=== PATIENT | male | born 1995 | race Caucasian/White ===

== ENCOUNTER 2016-10-19 09:35 | Emergency (ER) | payer BC, MEDICAID ==
[~2016-10-19] VITALS: Ht 160 cm; Wt 86.2 kg
[2016-10-19 09:35] VITALS: BP 130/70; PULSE 85; RESP 19; TEMP 97.6; O2SAT 99
[2016-10-19] MEDS ORDERED: LIDOCAINE 1%, 20 ML MDV 20 ML ONE (09:55)
[2016-10-19] MEDS ORDERED: DIPH-TET-PERTUS Vaccine 0.5 ML VIAL (ADACEL) IM ONE (10:00)
[2016-10-19] MEDS ORDERED: BACITRACIN 1 GM OINT TP ONE (10:00)
[2016-10-19] MEDS ORDERED: LIDOCAINE 1% 10 MG/ML, 20 ML MDV IJ ONE (10:00)
[2016-10-19 11:09] LABS: HEMATOCRIT 54.2 % (36-54); HEMOGLOBIN 17.9 g/dL (14.0-18.0); MEAN CORPUSCULAR HEMOGLOBIN 28 pg (27-31); MEAN CORPUSCULAR HGB CONC 33 % (32-36); MEAN CORPUSCULAR VOLUME 85 fL (79.0-98.0); PLATELET COUNT (AUTO) 235 K/uL (130-430); RED BLOOD CELL COUNT(AUTO) 6.41 MIL/uL (4.2-6.2); RED CELL DISTRIBUTION WIDTH 11.5 % (9.0-15.0); WHITE BLOOD COUNT (AUTO) 13.7 K/uL (4.8-10.8)
[2016-10-19 11:20] LABS: CALCIUM 9.5 mg/dL (8.4-11.0); CREATININE 1.11 mg/dL (0.55-1.30); POTASSIUM 4.2 mmol/L (3.5-5.1)
[2016-10-19 11:25] LABS: ALBUMIN 4.2 g/dL (3.4-4.8); TOTAL BILIRUBIN 0.8 mg/dL (0.0-1.0); TOTAL PROTEIN, SERUM 8.2 g/dL (6.4-8.3)
[2016-10-19 11:31] LABS: INR 1.2 (0.80-1.20); PROTHROMBIN TIME 12.6 SECS (9.5-12.5)
[2016-10-19 11:36] LABS: ATYPICAL LYMPHOCYTES % 4 % (0-0); BAND % (MANUAL) 0 % (0-6); BASOPHILS % (MANUAL) 0 % (0-2); EOSINOPHILS % (MANUAL) 2 % (0-7); LYMPHOCYTES % (MANUAL) 23 % (20-46); MONOCYTES % (MANUAL) 6 % (0-11)
[2016-10-19 12:48] VITALS: BP 128/70; PULSE 85; RESP 19; TEMP 97.6; O2SAT 99
== END 2016-10-19 12:48 | disposition home or self-care (01) ==
LOC: SED 09:35
DX: L05.01 Pilonidal cyst with abscess (principal); Z88.8 Allergy status to other drugs, medicaments and biological substances
CPT/HCPCS: 10081; 36415; 80053; 85007; 85027; 85610; 85730; 90715; 99284; J2001

== ENCOUNTER 2018-06-11 09:19 | Emergency (ER) | payer MEDICAID ==
[~2018-06-11] VITALS: Ht 160 cm; Wt 83.9 kg
[2018-06-11 09:24] VITALS: BP_SYST 144
--- NOTE | 2018-06-11 09:31 | NUR ---
Pt placed in bed 3
--- NOTE | 2018-06-11 09:33 | NUR ---
Patient c/c of back pain after exercising yesterday. Patient states he has worked out all week, after not working out for awhile. Patient states he was doing a 'deadlift' type exercise 'for traps' and his back 'went out and back in' continued pain. Patient states he went into the sauna and steam room without continued exercise after event occurred. Patient denies nausea, vomiting, and diarrhea at this time. Patient states he has been medicating with tylenol and motrin with no relief.
--- NOTE | 2018-06-11 10:05 | NUR ---
ER at bedside examining patient.
[2018-06-11] MEDS ORDERED: KETOROLAC TROMETHAMINE 60 MG/2 ML VIAL IM ONE (10:30)
[2018-06-11] MEDS ORDERED: HYDROcodone/ACETAMIN 10-325 MG TAB PO ONE (11:15)
--- NOTE | 2018-06-11 11:17 | NUR ---
Pain medication given, pt tolerated well. Scanner did not work to scan medication
--- NOTE | 2018-06-11 12:06 | NUR ---
Patient given written and verbal discharge instructions and verbalizes understanding. ER MD discussed with patient the results and treatment provided. Patient in stable condition. ID arm band removed. Rx of [place] 5/325, Motrin given. Patient educated on pain management and to follow up with PMD. Pain Scale 4/10. Opportunity for questions provided and answered.
[2018-06-11 12:11] VITALS: BP_SYST 144
== END 2018-06-11 12:06 | disposition home or self-care (01) ==
LOC: SED 09:19
DX: M54.5 Low back pain (principal); R03.0 Elevated blood-pressure reading, without diagnosis of hypertension; F17.200 Nicotine dependence, unspecified, uncomplicated; Z88.8 Allergy status to other drugs, medicaments and biological substances
CPT/HCPCS: 72100; 96372; 99284; J1885

== ENCOUNTER 2021-12-16 09:48 | Inpatient (IN) | payer MEDICAID ==
[~2021-12-16] VITALS: Ht 160 cm; Wt 70.3 kg
[2021-12-16 09:49] VITALS: BP_SYST 150
--- NOTE | 2021-12-16 09:58 | NUR ---
Chest X-Ray being done at bedside.
--- NOTE | 2021-12-16 10:12 | NUR ---
ER at bedside examining patient.
--- NOTE | 2021-12-16 10:32 | NUR ---
Pt. was bib ACLS post 911 call from his parents when he was unresponsive, EMS reported RR was 4 and they gave narcan, on arrival O2 sat 91% on RA pt, awake and alert, O2 was started at 2L/min via NC and remained under 95% O2 was increased to 4L/NC and RT was here for ABG draw, lungs auscultate clear
--- NOTE | 2021-12-16 10:42 | NUR ---
Dr. Joshua aware of O2 sat and RR, POC is to continue to monitor
[2021-12-16] MEDS ORDERED: MAG HYDROX/AL HYDROX/SIMETH 30 ML, DICYCLOMINE HCL 20 MG, LIDOCAINE VISCOUS 2% 15ML (PO... PO ONE ×3 (11:00)
[2021-12-16] MEDS ORDERED: ONDANSETRON HCL 4 MG/2 ML VIAL ONE (11:18)
[2021-12-16 11:37] LABS: BASOPHILS # (AUTO) 0.1 K/uL (0.0-0.2); BASOPHILS % (AUTO) 0.6 % (0.0-2.0); EOSINOPHILS % (AUTO) 0.2 % (0.0-4.0); HEMATOCRIT 44.5 % (36-54); HEMOGLOBIN 15.3 g/dL (14.0-18.0); LYMPHOCYTES # (AUTO) 1.1 K/uL (1.0-5.5); LYMPHOCYTES % (AUTO) 8.3 % (20.5-51.5); MEAN CORPUSCULAR HEMOGLOBIN 29 pg (27-31); MEAN CORPUSCULAR HGB CONC 35 % (32-36); MEAN CORPUSCULAR VOLUME 84 fL (79.0-98.0); MONOCYTES # (AUTO) 0.6 K/uL (0.0-1.0); MONOCYTES % (AUTO) 4.6 % (1.7-9.3); NEUTROPHILS # (AUTO) 11.8 K/uL (1.8-7.7); NEUTROPHILS % (AUTO) 86.3 % (40.0-70.0); PLATELET COUNT (AUTO) 353 K/uL (130-430); RED BLOOD CELL COUNT(AUTO) 5.33 MIL/uL (4.2-6.2); RED CELL DISTRIBUTION WIDTH 12.3 % (9.0-15.0); WHITE BLOOD COUNT (AUTO) 13.7 K/uL (4.8-10.8)
[2021-12-16] MEDS ORDERED: HYDR-3917 PO (11:37)
[2021-12-16] MEDS ORDERED: PERC10 PO (11:37)
[2021-12-16] MEDS ORDERED: ALPR1TAB2 PO (11:37)
--- NOTE | 2021-12-16 11:37 | NUR ---
Medication reconciliation completed with information provided by pt. Any prior medication reconciliation on file was reviewed and corrected.
[2021-12-16 11:47] LABS: BARBITURATE, URINE NEGATIVE (NEG <=200)
[2021-12-16 11:48] LABS: BENZODIAZEPINE, URINE POSITIVE (NEG <=150); CANNABINOID, URINE POSITIVE (NEG <=50); COCAINE, URINE NEGATIVE (NEG <=150); METHAMPHETAMINES SCREEN,URINE NEGATIVE (NEG <=500); OPIATE, URINE NEGATIVE (NEG <=100); PHENCYCLIDINE SCREEN,URINE NEGATIVE (NEG <=25); UR TRICYCLIC ANTIDEPRESSANTS NEGATIVE (NEG <=300); URINE AMPHETAMINE POSITIVE (NEG <=500); URINE METHADONE NEGATIVE (NEG <=200); URINE OXYCODONE SCREEN POSITIVE (NEG <=100); URINE PROPOXYPHENE SCREEN NEGATIVE (NEG <=300)
[2021-12-16 11:54] LABS: ANION GAP 7 (5-15); CALCIUM 9.8 mg/dL (8.4-11.0); CHLORIDE 99 mmol/L (98-107); CREATININE 1.23 mg/dL (0.55-1.30); GLUCOSE 79 mg/dL (70-99); POTASSIUM 3.4 mmol/L (3.5-5.1); SODIUM SERUM 136 mmol/L (136-145); UREA NITROGEN, BLOOD 15 mg/dL (8-21)
[2021-12-16] MEDS ORDERED: IPRATROPIUM/ALBUTEROL SULFATE 3 ML AMPUL.NEB (DUONEB) INH ONE (12:00)
[2021-12-16 12:02] LABS: ALANINE AMINOTRANSFERASE 84 U/L (12-78); ASPARTATE AMINOTRANSFERASE 78 U/L (10-37); TOTAL BILIRUBIN 0.4 mg/dL (0.0-1.0)
[2021-12-16 12:08] LABS: GFR AFRICAN AMERICAN 91 mL/min (>90)
--- NOTE | 2021-12-16 12:35 | NUR ---
Admit orders rec'd from Dr. Wilkins
--- NOTE | 2021-12-16 12:49 | NUR ---
Admit bed requested Patient will be admitted to care of . Admitted to TELEMETRY unit. Diagnosis RESPIRATORY INSUFFICIENCY Inpatient (Yes or No)YES Observation (Yes or No) NO Orientation concerns or request close to nursing station (Yes or No) NO Covid Status NEGATIVE On vent or bipap NO Isolation requirements NO Needs a sitter NO From Home (Yes or if No enter name of facility) HOME Requires Dialysis (Yes or No) NO Med Rec Completed (Yes of No) YES
[2021-12-16] MEDS ORDERED: ZOLPIDEM TARTRATE 5 MG TABLET PO PRN (13:45)
[2021-12-16] MEDS ORDERED: MAGNESIUM SULFATE 50 ML IV PRN (13:45)
[2021-12-16] MEDS ORDERED: ACETAMINOPHEN 325 MG TABLET PO PRN (13:45)
[2021-12-16] MEDS ORDERED: ONDANSETRON HCL 4 MG/2 ML VIAL IVP PRN (13:45)
[2021-12-16] MEDS ORDERED: DOCUSATE SODIUM 100 MG CAPSULE PO PRN (13:45)
[2021-12-16] MEDS ORDERED: POTASSIUM CHLORIDE 20 MEQ TAB.PRT.SR PO PRN (13:45)
[2021-12-16] MEDS ORDERED: ALBUTEROL MDI INHALATION 8 GM INH INH PRN (13:45)
[2021-12-16] MEDS ORDERED: NACL 0.9% 1,000 ML IV SCH (13:45)
[2021-12-16] MEDS ORDERED: NALOXONE HCL 0.4 MG/ML AMP (NARCAN) IVP PRN ×2 (13:45)
[2021-12-16] MEDS ORDERED: MUPIROCIN 2% TOPICAL OINTMENT 22 GM NS PRN (13:45)
--- NOTE | 2021-12-16 13:50 | NUR ---
Patient will be admitted to care of . Admitted to TELEMETRY unit. Will go to room 122B. Belongings list completed. Complete and up to date summary report printed. SBAR report to be given at bedside with opportunity for questions.
--- NOTE | 2021-12-16 14:10 | NUR ---
CONSULTATION PAGED REASON FOR CONSULTATION:LOW O2 SAT ON RA WAS CONSULT CALLED?Y PERSON WHO WAS NOTIFIED:NINFA CONSULTING PHYSICIAN:ANGELICA FLOR SERVICING REP SPECIALTY:PULMONARY SERVICING REP PHONE NUMBER: [phone] REQUESTING PHYSICIAN:[facility]
[2021-12-16] MEDS ORDERED: ALBUTEROL SULFATE 0.083% 2.5 MG/3 ML VIAL.NEB INH PRN (14:15)
[2021-12-16 14:20] VITALS: BP_SYST 128
[2021-12-16 16:00] VITALS: BP_SYST 132
--- NOTE | 2021-12-16 17:21 | NUR ---
INFORMED ARC CUTTER LAVERNE THAT THE PATIENT IS OFF THE TELE MONITOR
[2021-12-16] MEDS: LORazepam 2 MG/ML VIAL IVP PRN ×2 (17:26→22:46)
[2021-12-16 20:00] VITALS: BP_SYST 125
--- NOTE | 2021-12-16 20:15 | NUR ---
OPENING NOTE PT IS SITTING IN BED WITH PARENT BEDSIDE. NO APPARENT DISTRESS NOTED AT THIS TIME. PT STATES HE IS DOING OKAY AND JUST A LITTLE ANXIOUS. PT ALSO STATES HE WANTS TO RIP THE IV OUT OF HIS ARM SO BADLY, NURSE INFORMED HIM NOT TO PHIL THAT THAT IS THE ONLY WAY WE ARE ABLE TO GIVE HIM THE ATIVAN HE IS PRESCRIBED. PTS PARENTS ASKED MANY QUESTIONS ABOUT PTS CONDITION, NURSE ANSWERED ALL QUESTIONS ACCORDINGLY. BED IS IN LOWEST POSITION WITH SAFETY PRECAUTIONS IN PLACE. CALL LIGHT IS WITHIN REACH AND PT EDUCATED ON HOW TO USE IT. IV FLUIDS RUNNING ORDERED
--- NOTE | 2021-12-16 21:20 | NUR ---
PTS FAMILY PTS PARENTS SEEM TO BE OVERLY INVOLVED IN PTS CARE. THE PARENTS OVER INVOLVEMENT IN PTS CONDITION CAN EASILY BE SEEN ENABLING PTS CONDITION. WHILE GIVING THE PT A NEW MEDICATION THE PARENTS ASKED MULTIPLE QUESTIONS ABOUT THE SIDE EFFECTS AND EFFECTIVENESS THE PT WAS PASSIVE AND ON HIS PHONE.
--- NOTE | 2021-12-16 22:46 | NUR ---
Ativan Patient requesting Ativan and administered as ordered.
[2021-12-17] MEDS: LORazepam 2 MG/ML VIAL IVP PRN (03:07)
--- NOTE | 2021-12-17 03:07 | NUR ---
Ativan Patient requesting Ativan and administered as ordered. Oxygen saturation is 91% on room air, he doesn't have NC, he reports it dries/irritates his throat and makes nose congested.
--- NOTE | 2021-12-17 04:40 | NUR ---
NC PT COMPLAINED OF DRY NASAL PASSAGES. APPLIED HUMIDITY TO NC. PT IS BACK ON 2L NC
--- NOTE | 2021-12-17 06:52 | NUR ---
CLOSING NOTE PT IS LYING ON HIS SIDE WITH EYES CLOSED. NO APPARENT DISTRESS NOTED AT THIS TIME. BED IS IN LOWEST POSITION WITH SAFETY PRECAUTIONS IN PLACE. CALL LIGHT IS WITHIN REACH
[2021-12-17 06:56] LABS: BASOPHILS # (AUTO) 0.1 K/uL (0.0-0.2); BASOPHILS % (AUTO) 0.7 % (0.0-2.0); EOSINOPHILS # (AUTO) 0.1 K/uL (0.0-0.4); EOSINOPHILS % (AUTO) 0.8 % (0.0-4.0); HEMATOCRIT 42.2 % (36-54); HEMOGLOBIN 14.2 g/dL (14.0-18.0); LYMPHOCYTES # (AUTO) 2.5 K/uL (1.0-5.5); LYMPHOCYTES % (AUTO) 22.2 % (20.5-51.5); MEAN CORPUSCULAR HEMOGLOBIN 29 pg (27-31); MEAN CORPUSCULAR HGB CONC 34 % (32-36); MEAN CORPUSCULAR VOLUME 84 fL (79.0-98.0); MONOCYTES # (AUTO) 0.6 K/uL (0.0-1.0); MONOCYTES % (AUTO) 4.9 % (1.7-9.3); NEUTROPHILS # (AUTO) 8.1 K/uL (1.8-7.7); NEUTROPHILS % (AUTO) 71.4 % (40.0-70.0); PLATELET COUNT (AUTO) 304 K/uL (130-430); RED CELL DISTRIBUTION WIDTH 12.9 % (9.0-15.0); WHITE BLOOD COUNT (AUTO) 11.4 K/uL (4.8-10.8)
[2021-12-17 07:06] LABS: CALCIUM 8.9 mg/dL (8.4-11.0); CREATININE 1.05 mg/dL (0.55-1.30); POTASSIUM 4.1 mmol/L (3.5-5.1)
--- NOTE | 2021-12-17 07:45 | NUR ---
Received pt lying in bed calmly at this time. Pt is awake, alert, and talkative. Respirations even et unlabored. Pt exhibits no s/s acute distress at this time. Pt's parents are present at bedside. Physician stated pt can be cleared when pulmonary gives clearance. Pt and his parents verbalized understanding.
[2021-12-17 08:00] VITALS: BP_SYST 119
[2021-12-17 10:59] VITALS: BP_SYST 119
--- NOTE | 2021-12-17 11:02 | NUR ---
[employer]graduate Intern[employer] BALJIT Brewer met with patient at bedside. Patient was lying in bed, awake alert and orientated x4. Patient's mother was also present and patient provided consent to continue contact. SWING GRINDER completed introductions, and patient was open to contact. Mental Health History- Patient shares a previous diagnosis of ADHD, OCD, PTSD, Panic Disorder and Generalized Anxiety. He was not able to provide names of all his current meds but shared he sees a psychiatrist every 3 months for medication management. Substance Abuse- The patient only shared he takes pain meds and "stuff for his anxiety". While making efforts to engage patient, his parents would often interrupt and answer or ask questions. SWING GRINDER made attempts to directly engage patient to encourage him to pursue individual therapy to address his mental health issues. SWING GRINDER also discussed the importance of the patient taking initiative in his care. BALJIT provided resources for mental health clinics and Crisis Text Line. SWING GRINDER will continue to be available as needed.
[2021-12-17 11:41] VITALS: BP_SYST 134
--- NOTE | 2021-12-17 11:50 | NUR ---
Discharge instructions discussed with this patient. Physician and social scientist also discussed adverse side effects of drugs, alcohol, narcotics, and nonprescribed medications with patient. Also, I discussed healthy coping mechanisms with patient. Pastient verbalized understanding. Patient stated that he has an appointment today with his physician. Pt exhibits no s/s acute distress. Patient and his parents verbalized understanding of discharge instructions. Pt assisted to private auto per wheelchair accompanied by his parents. All valuables and belongings sent home with patient.
== END 2021-12-17 11:50 | disposition home or self-care (01) | DRG 812 ==
LOC: SED 09:48 → STU 12:31
PROVIDERS: ADMIT General Practice; ATTEND General Practice
DX: T42.4X1A Poisoning by benzodiazepines, accidental (unintentional), initial encounter (principal); J96.01 Acute respiratory failure with hypoxia; D72.829 Elevated white blood cell count, unspecified; T48.0X1A Poisoning by oxytocic drugs, accidental (unintentional), initial encounter; T40.721A Poisoning by synthetic cannabinoids, accidental (unintentional), initial encounter; L05.91 Pilonidal cyst without abscess; F41.9 Anxiety disorder, unspecified; Z20.822 Contact with and (suspected) exposure to COVID-19; E87.6 Hypokalemia; Z88.8 Allergy status to other drugs, medicaments and biological substances; Z79.899 Other long term (current) drug therapy; Y92.89 Other specified places as the place of occurrence of the external cause
CPT/HCPCS: 36415; 71045; 80048; 80053; 80307; 82803-TC; 83036; 83735; 83880; 84484; 85025; 93005; 99291; G0378; J2001; J2060; J2405

== ENCOUNTER 2023-02-05 20:07 | Emergency (ER) | payer MEDICAID ==
[~2023-02-05] VITALS: Ht 160 cm; Wt 63.5 kg
[~2023-02-05 20:07] MED LIST: ALPR1TAB2 PO; HYDR-3917 PO
[2023-02-05 20:26] VITALS: BP_SYST 157
[2023-02-05] MEDS ORDERED: HYDR-3917 PO (21:25)
[2023-02-05] MEDS ORDERED: SULF1TAB48 PO (21:25)
[2023-02-05] MEDS ORDERED: KETOROLAC TROMETHAMINE 30 MG VIAL IM ONE (21:30)
[2023-02-05 21:50] VITALS: BP_SYST 157
== END 2023-02-05 21:50 | disposition home or self-care (01) ==
LOC: SED 20:07
DX: L03.312 Cellulitis of back [any part except buttock and flank] (principal); M54.50 Low back pain, unspecified; Z88.8 Allergy status to other drugs, medicaments and biological substances; Z79.899 Other long term (current) drug therapy
CPT/HCPCS: 99283; 96372; J1885

== ENCOUNTER 2023-07-25 04:10 | Emergency (ER) | payer MEDICAID ==
[~2023-07-25] VITALS: Ht 160 cm; Wt 59.0 kg
[~2023-07-25 04:10] MED LIST changes: +SULF1TAB48 PO
[2023-07-25] MEDS ORDERED: ceFAZolin SODIUM 1 GM VIAL ONE (04:26)
[2023-07-25 04:30] VITALS: BP_SYST 117; PULSE 80; RESP 17; TEMP 98; O2SAT 98
[2023-07-25] MEDS ORDERED: ceFAZolin SODIUM 2 GM VIAL IM ONE (04:30)
== END 2023-07-25 05:39 | disposition home or self-care (01) ==
LOC: SED 04:10
DX: M54.50 Low back pain, unspecified (principal); M25.512 Pain in left shoulder
CPT/HCPCS: 99283; 73030; J0690